=== PATIENT | female | born 1940 | race Caucasian/White ===

== ENCOUNTER 2020-04-27 17:04 | Emergency (ER) | payer MEDICARE ==
[~2020-04-27] VITALS: Ht 157.5 cm; Wt 56.7 kg
[~2020-04-27 17:04] MED LIST: UNK B/P MED; UNKOWN CHOLESTEROL
[2020-04-27] MEDS ORDERED: Coumadin4 MG PO (17:11)
[2020-04-27] MEDS ORDERED: METO25ER PO (17:11)
[2020-04-27] MEDS ORDERED: ZOCOR20 MG PO (17:11)
[2020-04-27] MEDS ORDERED: AMLO5 PO (17:11)
[2020-04-27] MEDS ORDERED: GLUCHON PO (17:12)
[2020-04-27 17:24] LABS: BASOPHILS ABSOLUTE AUTO 0.03 K/mm3 (0.00-0.23); BASOPHILS PERCENT AUTO 0 % (0-2); EOSINOPHILS ABSOLUTE AUTO 0.09 K/mm3 (0.00-0.68); EOSINOPHILS PERCENT AUTO 1 % (0-6); Hematocrit 42.7 % (33.0-51.0); Hemoglobin 14.5 g/dL (11.5-16.0); IMMATURE GRAN ABSOLUTE AUTO 0.01 K/mm3 (0.00-0.10); IMMATURE GRAN PERCENT AUTO 0 % (0-1); LYMPHOCYTES ABSOLUTE AUTO 3.21 K/mm3 (0.84-5.20); LYMPHOCYTES PERCENT AUTO 45 % (21-46); MONOCYTES ABSOLUTE AUTO 0.59 K/mm3 (0.16-1.47); MONOCYTES PERCENT AUTO 8 % (4-13); Mean Corpuscular HGB 29.7 pg (26.0-34.0); Mean Corpuscular Volume 88 fL (80-100); Mean Platelet Volume 10.3 fL (9.1-12.4); NEUTROPHILS ABSOLUTE AUTO 3.23 K/mm3 (1.96-9.15); NEUTROPHILS PERCENT AUTO 45 % (41-73); Platelet Count 227 K/mm3 (150-400); RDW Coefficient Variation 12.8 % (11.7-14.2); RDW Standard Deviation 41.6 fL (35.1-46.3); Red Blood Cell Count 4.88 M/mm3 (3.80-5.20); White Blood Cell Count 7.16 K/mm3 (4.00-11.30)
[2020-04-27 17:47] LABS: Albumin, Blood 4.3 g/dL (3.4-5.0); Albumin/Globulin Ratio 1.1 (0.8-1.8); Bilirubin, Total 0.5 mg/dL (0.1-1.0); Bun/Creatinine Ratio 14.6 (12.0-20.0); Calcium, Blood 9.3 mg/dL (8.5-10.1); Creatinine, Blood 1.51 mg/dL (0.40-1.00); Globulin, Blood 3.8 g/dL (2.2-4.0); Total Protein, Blood 8.1 g/dL (6.4-8.2)
[2020-04-27 17:50] LABS: Prothrombin Time Results >90.0 Sec (9.7-11.5)
[2020-04-27 17:51] LABS: International Normalized Ratio >10.00
== END 2020-04-27 18:21 | disposition home or self-care (01) ==
LOC: ER 17:04
PROVIDERS: Emergency Medicine
DX: R79.1 Abnormal coagulation profile (principal); E87.6 Hypokalemia; Z79.01 Long term (current) use of anticoagulants; Z79.899 Other long term (current) drug therapy; I48.91 Unspecified atrial fibrillation
CPT/HCPCS: 36415; 80053; 82272; 85025; 85610; 85730; 86850; 86900; 86901; 99285; A9270

== ENCOUNTER → 2020-05-05 | Outpatient (CLI) | payer MEDICARE ==
[~2020-05-05] MED LIST changes: +AMLO5 PO; +Coumadin4 MG PO; +GLUCHON PO; +METO25ER PO; +ZOCOR20 MG PO
[2020-05-06 09:06] LABS: Stool Occult Bld Immuno 1 Positive (NEGATIVE)
== END | disposition home or self-care (01) ==
LOC: LAB 09:43
PROVIDERS: Nurse Practitioner Family
DX: R19.7 Diarrhea, unspecified (principal)
CPT/HCPCS: 82274

== ENCOUNTER 2020-05-09 09:48 | Emergency (ER) | payer MEDICARE ==
[~2020-05-09] VITALS: Ht 157.5 cm; Wt 54.4 kg
[2020-05-09 10:34] LABS: BASOPHILS ABSOLUTE AUTO 0.03 K/mm3 (0.00-0.23); BASOPHILS PERCENT AUTO 1 % (0-2); EOSINOPHILS ABSOLUTE AUTO 0.09 K/mm3 (0.00-0.68); EOSINOPHILS PERCENT AUTO 2 % (0-6); Hematocrit 40.8 % (33.0-51.0); Hemoglobin 13.8 g/dL (11.5-16.0); IMMATURE GRAN ABSOLUTE AUTO 0.01 K/mm3 (0.00-0.10); IMMATURE GRAN PERCENT AUTO 0 % (0-1); LYMPHOCYTES ABSOLUTE AUTO 1.74 K/mm3 (0.84-5.20); LYMPHOCYTES PERCENT AUTO 32 % (21-46); MONOCYTES PERCENT AUTO 6 % (4-13); Mean Corpuscular HGB Conc 33.8 g/dL (31.5-36.5); Mean Corpuscular Volume 89 fL (80-100); Mean Platelet Volume 9.6 fL (9.1-12.4); NEUTROPHILS PERCENT AUTO 60 % (41-73); Platelet Count 346 K/mm3 (150-400); RDW Coefficient Variation 12.7 % (11.7-14.2); RDW Standard Deviation 41.5 fL (35.1-46.3); White Blood Cell Count 5.47 K/mm3 (4.00-11.30)
[2020-05-09 10:54] LABS: Alanine Aminotransfer (ALT/SGP 32 U/L (12-78); Albumin, Blood 3.9 g/dL (3.4-5.0); Alk Phos 65 U/L (50-136); Anion Gap 9 mmol/L (6-16); Aspartate Aminotrans (AST/SGOT 30 U/L (12-37); Bilirubin, Total 0.4 mg/dL (0.1-1.0); Blood Urea Nitrogen 15 mg/dL (8-24); Bun/Creatinine Ratio 17.1 (12.0-20.0); CO2, Blood 25 mmol/L (21-32); Calcium, Blood 9.1 mg/dL (8.5-10.1); Chloride, Blood 103 mmol/L (98-108); Creatinine, Blood 0.88 mg/dL (0.40-1.00); Globulin, Blood 4.1 g/dL (2.2-4.0); Glomerular Filtration Rate >60 (60-); Glucose, Blood 112 mg/dL (70-99); Potassium, Blood 3.7 mmol/L (3.5-5.5); Sodium, Blood 137 mmol/L (136-145)
[2020-05-09 10:57] LABS: Prothrombin Time Results 39.8 Sec (9.7-11.5)
[2020-05-09 11:12] LABS: International Normalized Ratio 4.02
== END 2020-05-09 12:23 | disposition home or self-care (01) ==
LOC: ER 09:48
PROVIDERS: Emergency Medicine
DX: K62.5 Hemorrhage of anus and rectum (principal); I48.91 Unspecified atrial fibrillation; R79.1 Abnormal coagulation profile; I10 Essential (primary) hypertension; Z88.8 Allergy status to other drugs, medicaments and biological substances; Z79.01 Long term (current) use of anticoagulants; Z79.899 Other long term (current) drug therapy
CPT/HCPCS: 36415; 80053; 85025; 85610; 85730; 86850; 86900; 86901; 93005; 93010; 99285-25

== ENCOUNTER → 2020-05-16 | Outpatient (CLI) | payer MEDICARE | END | disposition home or self-care (01) | LOC: LAB 05:44 → LAB SHORT 05:44 → LAB FUT 05-11 19:30 → EDSTATUS 05-11 19:30 | DX: R19.7 Diarrhea, unspecified (principal); I48.91 Unspecified atrial fibrillation | CPT/HCPCS: 87177; 87209; 87328; 87329; 87493 ==

== ENCOUNTER 2022-11-19 12:13 | Inpatient (IN) | payer MEDICARE ==
[~2022-11-19] VITALS: Ht 157.5 cm; Wt 47.4 kg
[2022-11-19 12:47] LABS: BASOPHILS ABSOLUTE AUTO 0.04 K/mm3 (0.00-0.23); BASOPHILS PERCENT AUTO 1 % (0-2); EOSINOPHILS ABSOLUTE AUTO 0.04 K/mm3 (0.00-0.68); EOSINOPHILS PERCENT AUTO 1 % (0-6); Hematocrit 37.5 % (33.0-51.0); Hemoglobin 12.9 g/dL (11.5-16.0); IMMATURE GRAN ABSOLUTE AUTO 0.01 K/mm3 (0.00-0.10); IMMATURE GRAN PERCENT AUTO 0 % (0-1); LYMPHOCYTES ABSOLUTE AUTO 1.72 K/mm3 (0.84-5.20); LYMPHOCYTES PERCENT AUTO 27 % (21-46); MONOCYTES ABSOLUTE AUTO 0.36 K/mm3 (0.16-1.47); MONOCYTES PERCENT AUTO 6 % (4-13); Mean Corpuscular HGB 29.1 pg (26.0-34.0); Mean Corpuscular HGB Conc 34.4 g/dL (31.5-36.5); Mean Corpuscular Volume 85 fL (80-100); Mean Platelet Volume 10.5 fL (9.1-12.4); NEUTROPHILS PERCENT AUTO 66 % (41-73); Platelet Count 280 K/mm3 (150-400); RDW Coefficient Variation 14.7 % (11.7-14.2); RDW Standard Deviation 45.2 fL (35.1-46.3); Red Blood Cell Count 4.44 M/mm3 (3.80-5.20); White Blood Cell Count 6.47 K/mm3 (4.00-11.30)
[2022-11-19] MEDS ORDERED: LOSARTAN-HCTZ1 EACH PO (12:51)
[2022-11-19] MEDS ORDERED: NITR.4SL SL (12:51)
[2022-11-19 13:09] LABS: Albumin, Blood 3.1 g/dL (3.4-5.0); Albumin/Globulin Ratio 0.7 (0.8-1.8); Bilirubin, Total 0.6 mg/dL (0.1-1.0); Bun/Creatinine Ratio 37.3 (12.0-20.0); Calcium, Blood 8.9 mg/dL (8.5-10.1); Creatinine, Blood 0.51 mg/dL (0.40-1.00); Globulin, Blood 4.4 g/dL (2.2-4.0); Potassium, Blood 4.2 mmol/L (3.5-5.5); Total Protein, Blood 7.5 g/dL (6.4-8.2)
[2022-11-19 16:30] LABS: International Normalized Ratio 1.85; Prothrombin Time Results 18.8 Sec (9.7-11.5)
[2022-11-19 17:26] VITALS: BP 115/93
--- NOTE | 2022-11-19 18:34 | NUR ---
ADMIT TO MED 301/SHIFT SUMMARY: PATIENT ADMIT, ABLE TO STAND AND TRANSFER WITH ONE PERSON ASSIST. DENIES NUMBNESS/TINGLING. PERRLA. ALERT AND ORIENTED X3-4. KAKE. PERRLA. ON ROOM AIR SATING ABOVE 95%. LUNGS SOUNDING DIMINISHED WITH FINE CRACKLES IN BASES. PLAN FOR THORACENTESIS TOMORROW. DENIES COUGH. TELE SHOWING AFIB WITH HR 100-110'S. BP STABLE. DENIES CHEST PAIN/PRESSURE/PALPITATIONS. PPP. BOWEL TONES PRESENT. PUREWICK IN PLACE. URINE CLEAR/YELLOW. LAST BM YESTERDAY. EATING DINNER AT THIS TIME. SKIN OVERALL FRAGILE WITH SCATTERED BRUISING. 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 PATIENT STATES "I SIT ON MY BUTT TOO MUCH". PATIENT EDUCATED ABOUT PRESSURE ULCER PREVENTION. PATIENT ALSO EDUCATED ON FIRE RISK AND IGNIGTION SOURCES. PATIENT DENIES HAVING ANY SOURCES OF IGNITION. CALL LIGHT IN REACH. ORIENTED TO ROOM AND UNIT. BED ALARM IN PLACE FOR SAFETY. MED REC COMPLETED.
[2022-11-19 19:32] VITALS: BP 125/80
--- NOTE | 2022-11-19 20:04 | NUR ---
CALL FORM ELECTRIC VEHICLE ELECTRICIAN SAMANTHA, REPORTING ECHO IS MARKEDLY ABNORMAL AND WOULD LIKE THIS RELAYED TO HOSPITALIST. CALL PLACED TO [employer] [employer] [facility]PRES[facility] WITH NO ANSWER WILL AWAIT RETURN CALL.
[2022-11-20 03:12] VITALS: BP 126/78
--- NOTE | 2022-11-20 04:24 | NUR ---
SHIFT SUMMARY NO ACUTE EVENTS THIS SHIFT. PATIENT REMAINS AOX4, SBA ASSIST TO BSC W/ FWW. VOIDS SPONTANEOUSLY. DENIES SOB, CHEST PAIN/PRESSURE. PLAN FOR THORACENTESIS THIS AM. VSS, CALL LIGHT IN REACH.
[2022-11-20 04:47] LABS: BASOPHILS ABSOLUTE AUTO 0.04 K/mm3 (0.00-0.23); BASOPHILS PERCENT AUTO 1 % (0-2); EOSINOPHILS ABSOLUTE AUTO 0.16 K/mm3 (0.00-0.68); EOSINOPHILS PERCENT AUTO 3 % (0-6); Hematocrit 37.2 % (33.0-51.0); Hemoglobin 12.6 g/dL (11.5-16.0); IMMATURE GRAN PERCENT AUTO 0 % (0-1); LYMPHOCYTES PERCENT AUTO 43 % (21-46); MONOCYTES PERCENT AUTO 9 % (4-13); Mean Corpuscular HGB 28.6 pg (26.0-34.0); Mean Corpuscular HGB Conc 33.9 g/dL (31.5-36.5); Mean Corpuscular Volume 84 fL (80-100); Mean Platelet Volume 10.5 fL (9.1-12.4); NEUTROPHILS ABSOLUTE AUTO 2.07 K/mm3 (1.96-9.15); NEUTROPHILS PERCENT AUTO 44 % (41-73); Platelet Count 262 K/mm3 (150-400); RDW Coefficient Variation 14.6 % (11.7-14.2); Red Blood Cell Count 4.41 M/mm3 (3.80-5.20); White Blood Cell Count 4.67 K/mm3 (4.00-11.30)
[2022-11-20 05:02] LABS: International Normalized Ratio 2.04; Prothrombin Time Results 20.6 Sec (9.7-11.5)
[2022-11-20 05:16] LABS: Bun/Creatinine Ratio 29.1 (12.0-20.0); Calcium, Blood 8.3 mg/dL (8.5-10.1); Creatinine, Blood 0.55 mg/dL (0.40-1.00); Potassium, Blood 2.9 mmol/L (3.5-5.5)
[2022-11-20 07:26] VITALS: BP 117/78
--- NOTE | 2022-11-20 12:17 | NUR ---
Pt resting in bed upon arrival. Pt is A&OX4 and denies pain at this time. She reports her dyspnea has improved and has mild anxiety due to be bored. Pt's spouse Antonio and Pt's daughter Adeline at bedside. Offered therapeutic listening as Pt reports conference center manager was in earlier and discussed plan. Plan is to correct electrolyte imbalance, address pressure ulcer, and then possible cardiac intervention according to Pt. Continued supportive visit. Pt and family agreeable for this RN to come back tomorrow and discuss advanced care planning, including advanced directives and POLST. Palliative Care will remain available
[2022-11-20 13:13] VITALS: BP 121/74
[2022-11-20 16:21] VITALS: BP 138/95
[2022-11-20 19:30] VITALS: BP 119/79
--- NOTE | 2022-11-20 19:34 | NUR ---
SHIFT SUMMARY PATIENT WITH NO ACUTE ISSUES THROUGHOUT SHIFT UNTIL SHIFT CHANGE, IV STARTED BLEEDING AT 1800, IV REMOVED, PRESSURE DRESSING APPLIED AND BLEEDING STOPPED.1914 PATIENT C/O SHORTNESS OF BREATH SLIGHT AND A LITTLE TIGHT IN CHEST BUT STATES SHE HAS BEEN ELEVATING HER ARM TOO. DURING SHIFT REPORT, NIGHT TIERA PEREA STATES HE WILL GET AN EKG.
[2022-11-21 04:14] VITALS: BP 121/74
[2022-11-21 05:08] LABS: International Normalized Ratio 1.82; Prothrombin Time Results 18.5 Sec (9.7-11.5)
[2022-11-21 05:16] LABS: Bun/Creatinine Ratio 23.8 (12.0-20.0); Creatinine, Blood 0.55 mg/dL (0.40-1.00)
--- NOTE | 2022-11-21 06:13 | NUR ---
VSS ON RA, AO, PLEASANT, MILD SOB REPORTED EARLY IN SHIFT BUT RESOLVED AND PATIENT O2 SATS HAVE BEEN >92% AT EVERY CHECK ON RA. ENCOURAGING PT TO SLEEP ON SIDE AND OFF LOAD PRESSURE FROM COCCYX. I PLACED MEPILEX AND BARRIER CREAM TO COCCYX DUE TO COMPLAINT OF PAIN, PT STATES IT HELPED REDUCE PAIN. WILL CONTINUE TO ENCOURAGE OFFLOADING. FIRE SAFETY REVIEWED.
[2022-11-21 08:00] VITALS: BP 113/78
--- NOTE | 2022-11-21 13:18 | NUR ---
Pt resting in bed with her eyes closed upon arrival. Pt appears comfortable with no S/S of distress at this time. Pt left undisturbed at this time. Spoke with Pt's Primary RN Kristel and discussed case. Pt's daughter was at bedside earlier today. Palliative Care will F/U for advanced care planning when Pt is awake.
[2022-11-21 15:30] VITALS: BP 107/75
--- NOTE | 2022-11-21 17:18 | NUR ---
SHIFT SUMMARY: NO ACUTE EVENTS. NO EVENTS ON TELEMETRY, AFIB 90-115 DEPENDING ON ACTIVITY. ON ROOM AIR, BUT FEELS DORSEY, SO NC ON FOR COMFORT (NO O2 INFUSING THROUGH IT). DENIED PAIN. GETTING UP TO BSC INDEPENDENTLY, SBA FOR FURTHER DISTANCES. DENIED CHEST DISCOMFORT OR PRESSURE. AWAITING THORACENTESIS, MUST BE OFF COUMADIN X [address] AMEZCUA AWARE.
--- NOTE | 2022-11-21 18:26 | NUR ---
TOOK OVER CARE OF PATIENT AT THE END OF THE SHIFT, THE PATIENT HAS BEED TALKED WITH ABOUT THE DANGER OF FIRES AND IGNITIONS SOURCES. WILL CONTINUE TO MONITOR.
[2022-11-21 19:20] VITALS: BP 114/85
[2022-11-22] VITALS (9 sets, daily range): BP systolic 96–124; BP diastolic 62–95
[2022-11-22 05:21] LABS: International Normalized Ratio 1.38; Prothrombin Time Results 14.2 Sec (9.7-11.5)
[2022-11-22 05:34] LABS: Bun/Creatinine Ratio 29.6 (12.0-20.0); Calcium, Blood 8.6 mg/dL (8.5-10.1); Creatinine, Blood 0.47 mg/dL (0.40-1.00); Potassium, Blood 4.3 mmol/L (3.5-5.5)
--- NOTE | 2022-11-22 05:59 | NUR ---
SHIFT SUMMARY PT SITTING UP IN BED DURING BEDSIDE ROUNDS, PT DENIES PAIN/SOB- PT TOOK SCHEDULED HS MEDICATION WITHOUT PROBLEMS, PT REQUESTED TO NOT WEAR SCDS IN THE NIGHT - PT REPORTED HAVING THEM ON T/O DAY, PER PT UNABLE TO SLEEP WITH THE SCDS ON HER LEGS- PT UP FOR A FEW HOURS AFTER MIDNIGHT READING, PT REPORTED PAIN IN COCYX FROM HER FALL - PT REPORTED PAIN TOLERABLE, MEPILEX IN IGNITION SOURCE ASSESSED, PT DENIED SMOKING AND DENIED ANY IGNITION SOURCES, BED LOW POSITION, CALL LIGHT WITHIN REACH
--- NOTE | 2022-11-22 10:50 | NUR ---
ASSUMED CARE AND COMFORT OF THIS PATIENT AT 0700 TODAY. SHE WAS RESTING COMFORTABLY EYES CLOSED BREATHING EVEN AND UNLABORED. ROUSES EASILY TO BEDSIDE REPORT. FIRE SAFETY QUESTIONS ARE ASKED AND ANSWERED NO CONCERNS NOTED. PATIENT OUT TO RADIOLOGY FOR A THORACENTESIS ON LEFT SIDE. 1.5 LITERS REMOVED. PATIENT RETURNED TO ROOM VISITING WITH FAMILY AT BEDSIDE. BRANDT. WILL CONTINUE TO MONITOR THIS PATIENTCLOSELY.
--- NOTE | 2022-11-22 15:00 | NUR ---
ASSUMED CARE OF THIS PT AT THIS TIME
--- NOTE | 2022-11-22 18:21 | NUR ---
SHIFT SUMMARY PT A&OX4 AND IN PLEASENT MOOD SINCE THIS RN ASSUMED CARE. PLAN FOR NPO AT MIDNIGHT FOR ANGIO IN AM, TOLERATING PO INTAKE WELL. CALL LIGHT W/IN REACH. 2L NC AT REST.
[2022-11-23 04:08] VITALS: BP 119/76
--- NOTE | 2022-11-23 06:21 | NUR ---
SHIFT SUMMARY PT SITTING UP IN BED DURING BEDSIDE ROUNDS- PT DENIES PAIN/SOB, PT TOOK SCHEDULED HS MEDICATION WITHOUT PROBLEMS, CHANGED MEPILEX ON BUTTOCKS, REDNESS NOTED - SKIN BLANCHABLE- PT ON ROOM AIR IGNITION ASSESSMENT DONE- PT DENIED HAVING ANY IGNITION ITEMS- PT NPO AT MIDNIGHT FOR PROCEDURE- PT SLEPT T/O NIGHT WITHOUT DISTRESS- BED TO LOW POSITION, CALL LIGHT WITHIN REACH
[2022-11-23 06:44] LABS: Bun/Creatinine Ratio 28.2 (12.0-20.0); Calcium, Blood 8.5 mg/dL (8.5-10.1); Creatinine, Blood 0.46 mg/dL (0.40-1.00); Potassium, Blood 4.4 mmol/L (3.5-5.5)
[2022-11-23 07:11] VITALS: BP 129/77
[2022-11-23] MEDS ORDERED: FURO40 PO (12:07)
[2022-11-23] MEDS ORDERED: K-TAB ER20 ME1 PO (12:08)
--- NOTE | 2022-11-23 12:35 | NUR ---
DISCHARGE SUMMARY PT DISCHARGED TO HOME. PT LEFT ROOM IN WHEELCHAIR PRIOR TO THIS NOTE AT 1222 VIA WHEELCHAIR WITH DEVOPS ARCHITECT TORY EDGAR. IV DCD AND BELINGINGS RETURNED. PT EDUCATED ON ALL DISCHARGE INSTRUCTIONS, ALL QUESTIONS ANSWERED. PT AGREES TO FOLLOW UP WITH PCP AND CARDIOLOGY AND TAKE MEDICATIONS PRESCRIBED. PT ALSO AGREES TO NOT EXERT HERSELF PER DR AMEZCUA'S ORDERS. PT AGREES TO ROLLER BEARING INSPECTOR MEDICATIONS FROM [facility] ON HER WAY HOME.
== END 2022-11-23 12:34 | disposition home or self-care (01) | DRG 292 ==
LOC: ER 12:13 → MEDS 14:34
PROVIDERS: Emergency Medicine; Internal Medicine; ADMIT Family Medicine
PROC: 0W993ZZ Drainage of Right Pleural Cavity, Percutaneous Approach (ICD-10-PCS; principal; 2022-11-20)
DX: I50.31 Acute diastolic (congestive) heart failure (principal); E87.1 Hypo-osmolality and hyponatremia; I48.20 Chronic atrial fibrillation, unspecified; J95.811 Postprocedural pneumothorax; R64 Cachexia; Z68.1 Body mass index [BMI] 19.9 or less, adult; J91.8 Pleural effusion in other conditions classified elsewhere; I11.0 Hypertensive heart disease with heart failure; Z66 Do not resuscitate; Z51.5 Encounter for palliative care; E87.6 Hypokalemia; J44.9 Chronic obstructive pulmonary disease, unspecified; I27.20 Pulmonary hypertension, unspecified; I08.3 Combined rheumatic disorders of mitral, aortic and tricuspid valves; Z88.8 Allergy status to other drugs, medicaments and biological substances; Z79.01 Long term (current) use of anticoagulants; Z79.899 Other long term (current) drug therapy
CPT/HCPCS: 32555; 36415; 71045; 80048; 80053; 83880; 84145; 84484; 85025; 85610; 85730; 93005; 93010; 93306; 94760; 96374; 99285-25; A9270; J1940; J3430

== ENCOUNTER 2022-12-16 08:26 | Day surgery (SDC) | payer MEDICARE ==
[~2022-12-16] VITALS: Ht 157.5 cm; Wt 43.5 kg
[2022-12-16] VITALS (11 sets, daily range): BP systolic 106–145; BP diastolic 61–118
[~2022-12-16 08:26] MED LIST changes: +AMLO5; +FURO40 PO; +K-TAB ER20 ME1 PO; +LOSARTAN-HCTZ1 EACH PO; +NITR.4SL SL
--- NOTE | 2022-12-16 11:57 | NUR ---
PT ALERT AND ORIENTED, SITTING UP IN BED EATING LUNCH. DAUGHTER AT BEDSIDE. VSS AT THIS TIME. TR BAND IN PLACE, NO BLEEDING NO HEMATOMA
--- NOTE | 2022-12-16 13:55 | NUR ---
TR BAND AIR REMOVED, FLAT AND BAND REMAINS IN PLACE. NO BLEEDING NOTED. NO HEMATOMA NOTED. DAUGHTER REMAINS AT THE BEDSIDE. VVS. NO PAIN NOTED.
--- NOTE | 2022-12-16 14:35 | NUR ---
pt tr band delfated per protocol. no swelling or oozing from site, small dime sized hematoma at insertion site. dressing placed over site, vss. iv removed, catheter intact. discharge instructions reviewed with pt and daughter. office called to verify pt daughter to be called to arrange f/u appointment. plans for referral for tavr. pt. vss upon discharge, taken via wheel chair to exit.
== END 2022-12-16 14:47 | disposition home or self-care (01) ==
LOC: MHTC 08:26
DX: I08.3 Combined rheumatic disorders of mitral, aortic and tricuspid valves (principal); I27.22 Pulmonary hypertension due to left heart disease; I50.30 Unspecified diastolic (congestive) heart failure
CPT/HCPCS: 76937; 93456; 99152; C1769; C1894; J1644; J2250; J3010; J7030; J7050; Q9967

== ENCOUNTER → 2024-10-14 | Outpatient (CLI) | payer MEDICARE ==
[2024-10-15 15:39] LABS: BASOPHILS ABSOLUTE AUTO 0.06 K/mm3 (0.00-0.23); BASOPHILS PERCENT AUTO 1 % (0-2); EOSINOPHILS ABSOLUTE AUTO 0.14 K/mm3 (0.00-0.68); EOSINOPHILS PERCENT AUTO 2 % (0-6); Hematocrit 32.3 % (33.0-51.0); Hemoglobin 10.4 g/dL (11.5-16.0); IMMATURE GRAN ABSOLUTE AUTO 0.02 K/mm3 (0.00-0.10); IMMATURE GRAN PERCENT AUTO 0 % (0-1); LYMPHOCYTES ABSOLUTE AUTO 1.91 K/mm3 (0.84-5.20); LYMPHOCYTES PERCENT AUTO 31 % (21-46); MONOCYTES ABSOLUTE AUTO 0.33 K/mm3 (0.16-1.47); MONOCYTES PERCENT AUTO 5 % (4-13); Mean Corpuscular HGB 27.9 pg (26.0-34.0); Mean Corpuscular HGB Conc 32.2 g/dL (31.5-36.5); Mean Corpuscular Volume 87 fL (80-100); Mean Platelet Volume 10.5 fL (9.1-12.4); NEUTROPHILS ABSOLUTE AUTO 3.65 K/mm3 (1.96-9.15); NEUTROPHILS PERCENT AUTO 60 % (41-73); Platelet Count 330 K/mm3 (150-400); RDW Coefficient Variation 18.6 % (11.7-14.2); RDW Standard Deviation 48.6 fL (35.1-46.3); Red Blood Cell Count 3.73 M/mm3 (3.80-5.20); White Blood Cell Count 6.11 K/mm3 (4.00-11.30)
== END ==
LOC: LAB SHORT 14:20 → LAB 14:20
DX: Z87.19 Personal history of other diseases of the digestive system (principal)
CPT/HCPCS: 85025